=== PATIENT | male | born 1970 ===

== ENCOUNTER → 2022-07-02 14:03 | Outpatient (CLI) | payer BC, SELFPAY ==
--- NOTE | ~2022-07-02 | XR_ITS ---
XR hip LT min 2V DATE: 07/02/2022 14:18 INDICATION: Left hip pain. No injury. TECHNIQUE: AP and lateral views COMPARISON: None FINDINGS: There is prominent acetabular and femoral head spurring consistent with moderately severe l eft hip osteoarthritis. No fracture or dislocation, avascular necrosis or bone destruction is evident. Normal alignment at the pubic symphysis and sacroiliac joints. IMPRESSION: Moderately severe left hip osteoarthritis with prominent acetabular and femoral head spur ring Reviewed, dictated and finalized at location B. TECHNICIAN IMPRESSION: Moderately severe left hip osteoarthritis with prominent acetabular and femoral head spurring
== END ==
PROVIDERS: PCP Emergency Medicine; Visit Provider Emergency Medicine
DX: M25.552 Pain in left hip (principal); M16.12 Unilateral primary osteoarthritis, left hip
CPT/HCPCS: 73502